=== PATIENT | female | born 1995 | race African-American/Black ===

== ENCOUNTER 2018-12-13 06:39 | Emergency (ER) | payer SELFPAY ==
[~2018-12-13] VITALS: Ht 165.1 cm; Wt 91.2 kg
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
[2018-12-13 07:55] LABS: BILIRUBIN,URINE NEGATIVE (NEG); CLARITY,URINE CLEAR; COLOR,URINE YELLOW; NITRITE,URINE NEGATIVE (NEG); PROTEIN,URINE NEGATIVE (NEG-TRACE)
[2018-12-13] MEDS ORDERED: cefTRIAXone IM 250 MG VIAL IM ONE (08:00)
[2018-12-13] MEDS ORDERED: AZITHROMYCIN 250 MG TABLET. PO ONE (08:00)
[2018-12-13 08:07] LABS: BACTERIA,URINE MANY /HPF (0-FEW); SQUAMOUS EPITHELIAL CELL,UR MANY /LPF
[2018-12-13] MEDS ORDERED: METR500T PO (08:28)
[2018-12-13 08:48] VITALS: BP 122/74
[2018-12-19 00:08] LABS: GC PROBE Negative (Negative)
== END 2018-12-13 08:48 | disposition home or self-care (01) ==
LOC: ER 06:39
DX: N76.0 Acute vaginitis (principal)
CPT/HCPCS: 81001; 81025; 87086; 87491; 87591; 96372; 99284; J0696; Q0111; Q0144

== ENCOUNTER 2019-05-02 11:55 | Emergency (ER) | payer SELFPAY ==
[~2019-05-02] VITALS: Ht 162.6 cm; Wt 63.5 kg
[~2019-05-02 11:55] MED LIST: METR500T PO
[2019-05-02 13:52] LABS: BILIRUBIN,URINE NEGATIVE (NEG); CLARITY,URINE CLEAR; COLOR,URINE YELLOW; NITRITE,URINE NEGATIVE (NEG); PROTEIN,URINE NEGATIVE (NEG-TRACE); UROBILINOGEN,URINE 0.2 mg/dL (0.2 mg/dL)
[2019-05-02 14:11] LABS: BACTERIA,URINE MOD /HPF (0-FEW); SQUAMOUS EPITHELIAL CELL,UR MANY /LPF
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
[2019-05-02] MEDS ORDERED: CEPH500T PO (15:09)
[2019-05-02] MEDS ORDERED: METR500T PO (15:09)
[2019-05-02] MEDS ORDERED: metroNIDAZOLE 500 MG TABLET PO ONE (15:15)
[2019-05-02] MEDS ORDERED: cefTRIAXone IM 250 MG VIAL IM ONE (15:15)
[2019-05-02] MEDS ORDERED: AZITHROMYCIN 250 MG TABLET. PO ONE (15:15)
[2019-05-02 17:00] VITALS: BP 117/75
[2019-05-03 18:09] LABS: GC PROBE Negative (Negative)
== END 2019-05-02 17:00 | disposition home or self-care (01) ==
LOC: ER 11:55
DX: A59.01 Trichomonal vulvovaginitis (principal); N39.0 Urinary tract infection, site not specified; B96.89 Other specified bacterial agents as the cause of diseases classified elsewhere; N76.0 Acute vaginitis
CPT/HCPCS: 81001; 81025; 87491; 87591; 99284; Q0111

== ENCOUNTER 2019-11-21 18:26 | Emergency (ER) | payer SELFPAY ==
[~2019-11-21] VITALS: Ht 160 cm; Wt 68.2 kg
[~2019-11-21 18:26] MED LIST changes: +CEPH500T PO
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
[2019-11-21] MEDS ORDERED: HYDROcodon/APAP 7.5/325MG ORAL 15 ML SOLUTION PO ONE (21:30)
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
[2019-11-21 22:40] VITALS: BP 130/86
== END 2019-11-21 22:44 | disposition home or self-care (01) ==
LOC: ER 18:26
DX: S00.83XA Contusion of other part of head, initial encounter (principal); R68.84 Jaw pain; R60.0 Localized edema; F17.200 Nicotine dependence, unspecified, uncomplicated; Y08.89XA Assault by other specified means, initial encounter; Y93.89 Activity, other specified; Y92.89 Other specified places as the place of occurrence of the external cause; Y99.8 Other external cause status
CPT/HCPCS: 70110; 70486; 81025; 99284